=== PATIENT | female | born 1995 | race Two or more races ===

== ENCOUNTER 2023-09-07 01:46 | Emergency (ER) | payer MEDICAID ==
[~2023-09-07] VITALS: Ht 165.1 cm; Wt 207.0 kg
[2023-09-07] MEDS ORDERED: ALBUTEROL SULF 2.5 MG/0.5ML(0.5%) NEB SOLN NEB ONE (05:45)
[2023-09-07 07:36] LABS: Basophils # (auto) 0.1 10 ^3/uL (0-0.2); Basophils % (auto) 0.4 % (0.0-2.0); Hemoglobin 13.2 g/dL (12.2-16.2); Lymphocytes # (auto) 4.8 10 ^3/uL (0.4-5.4); White Blood Cell 14.7 10^3/uL (4.4-10.8)
[2023-09-07 07:41] LABS: Anion Gap 9 (5-15); Carbon Dioxide 26 mmol/L (20-30); Chloride 105 mmol/L (98-107); Eosinophils # (auto) 0.1 10 ^3/uL (0-0.8); Eosinophils % (auto) 0.8 % (0.0-7.0); Hematocrit 41.9 % (36.0-46.0); Lymphocytes % (auto) 32.9 % (10.0-50.0); Mean Corpuscular Hemoglobin 26.5 pg (28.0-32.0); Mean Corpuscular Hgb Conc. 31.4 g/dL (32.0-36.0); Mean Corpuscular Volume 84.5 fL (80.0-100.0); Monocytes # (auto) 0.9 10 ^3/uL (0-1.3); Monocytes % (auto) 6.3 % (0.0-12.0); Neutrophils # (auto) 8.7 10 ^3/uL (1.6-8.6); Neutrophils % (auto) 59.6 % (37.0-80.0); Nucleated Red Blood Cells % 0.1 %; Potassium 3.9 mmol/L (3.5-5.1); Red Blood Cells 4.96 10^6/uL (4.0-5.20); Red Cell Distribution Width 16.1 % (11.8-14.3); Sodium 140 mmol/L (136-145)
[2023-09-07 07:42] LABS: Calcium 9.5 mg/dL (8.5-10.1)
[2023-09-07 07:46] LABS: Blood Urea Nitrogen 11 mg/dL (9-23)
[2023-09-07 07:47] LABS: BUN/Creatinine Ratio 14.9 (10.0-20.0); Glucose 211 mg/dL (74-106)
[2023-09-07 09:00] VITALS: BP 118/46; PULSE 88; RESP 16; TEMP 98.4; O2SAT 99
== END 2023-09-07 11:25 | disposition left against medical advice (07) ==
LOC: ER 01:46
DX: R06.02 Shortness of breath (principal)
CPT/HCPCS: 36415; 71045; 80048; 84484; 85025; 85379; 94640

== ENCOUNTER 2023-10-06 12:14 | Emergency (ER) | payer MEDICAID ==
[~2023-10-06] VITALS: Ht 165.1 cm; Wt 199.2 kg
[2023-10-06 12:35] LABS: Eosinophils # (auto) 0.3 10 ^3/uL (0-0.8); Neutrophils % (auto) 58.1 % (37.0-80.0)
[2023-10-06 12:36] LABS: Basophils # (auto) 0 10 ^3/uL (0-0.2); Basophils % (auto) 0.3 % (0.0-2.0); Eosinophils % (auto) 2.8 % (0.0-7.0); Hematocrit 44.8 % (36.0-46.0); Hemoglobin 14.5 g/dL (12.2-16.2); Lymphocytes # (auto) 3.1 10 ^3/uL (0.4-5.4); Lymphocytes % (auto) 30.3 % (10.0-50.0); Mean Corpuscular Hemoglobin 26.7 pg (28.0-32.0); Mean Corpuscular Hgb Conc. 32.3 g/dL (32.0-36.0); Mean Corpuscular Volume 82.7 fL (80.0-100.0); Monocytes # (auto) 0.9 10 ^3/uL (0-1.3); Monocytes % (auto) 8.5 % (0.0-12.0); Red Blood Cells 5.42 10^6/uL (4.0-5.20); Red Cell Distribution Width 16.7 % (11.8-14.3); White Blood Cell 10.4 10^3/uL (4.4-10.8)
[2023-10-06 13:02] LABS: Alanine Aminotransferase 71 U/L (7-40); Alkaline Phosphatase 49 U/L (46-116); Anion Gap 3 (5-15); Aspartate Aminotransferase 30 U/L (13-40); Bilirubin, Total 0.3 mg/dL (0.2-1.0); Blood Urea Nitrogen 12 mg/dL (9-23); Calcium 9.3 mg/dL (8.5-10.1); Carbon Dioxide 29 mmol/L (20-30); Chloride 110 mmol/L (98-107); Glucose 98 mg/dL (74-106); Potassium 4.2 mmol/L (3.5-5.1); Sodium 142 mmol/L (136-145); Total Protein 6.1 g/dL (5.7-8.2)
[2023-10-06] MEDS: ASPirin 325 MG TAB PO ONE (14:53)
[2023-10-06 15:32] VITALS: BP 128/82; PULSE 88; RESP 15; TEMP 97.6; O2SAT 97
== END 2023-10-06 15:35 | disposition home or self-care (01) ==
LOC: ER 12:14
DX: R07.89 Other chest pain (principal); E66.01 Morbid (severe) obesity due to excess calories; J45.909 Unspecified asthma, uncomplicated; Z68.45 Body mass index [BMI] 70 or greater, adult
CPT/HCPCS: 36415; 80053; 84484; 85025; 85379; 93005

== ENCOUNTER 2023-10-31 11:49 | Emergency (ER) | payer MEDICAID ==
[~2023-10-31] VITALS: Ht 165.1 cm; Wt 196.9 kg
[~2023-10-31 11:49] MED LIST: ALBU108A5 IN
[2023-10-31 12:29] VITALS: BP 154/82; PULSE 21; RESP 21; TEMP 98.8; O2SAT 95
[2023-10-31 13:30] LABS: Urine Bacteria FEW /hpf (None Seen); Urine Blood 3+ /uL (Negative); Urine Clarity HAZY (Clear); Urine Color Yellow (Yellow); Urine Mucus FEW (None Seen); Urine Protein, UAD TRACE (Negative); Urine Specific Gravity 1.021 (1.001-1.035); Urine Urobilinogen Normal (Negative); Urine WBC 167 /hpf (0 - 5); Urine pH 5.5 (5.0-8.0)
[2023-10-31] MEDS ORDERED: PHEN-922 PO (13:49)
[2023-10-31] MEDS ORDERED: BACDST PO (13:49)
[2023-10-31] MEDS: PHENAZOPYRIDINE HCL 100 MG TAB PO ONE (13:56)
[2023-10-31] MEDS: cefTRIAXone SOD 1,000 MG VL IM ONE (14:03)
== END 2023-10-31 14:05 | disposition home or self-care (01) ==
LOC: ER 11:49
DX: N39.0 Urinary tract infection, site not specified (principal); E66.01 Morbid (severe) obesity due to excess calories; J45.909 Unspecified asthma, uncomplicated; Z68.45 Body mass index [BMI] 70 or greater, adult; Z32.02 Encounter for pregnancy test, result negative
CPT/HCPCS: 81001; 81025; 99283; J0696